=== PATIENT | female | born 1950 | race Caucasian/White ===

== ENCOUNTER 2017-12-21 08:25 | Inpatient (IN) | payer MEDICARE ==
[~2017-12-21] VITALS: Ht 154.9 cm; Wt 55.0 kg
[2017-12-21] MEDS ORDERED: LACTATED RINGERS 1,000 ML IV SCH (09:03)
[2017-12-21] MEDS ORDERED: OXYC-305 PO (09:13)
[2017-12-21] MEDS ORDERED: CAPE150T PO (09:13)
[2017-12-21] MEDS ORDERED: OXYB5TAB PO (09:13)
[2017-12-21] MEDS ORDERED: [UNRECOGNIZED DRUG - CODE] (09:13)
[2017-12-21] MEDS ORDERED: ALPR1TAB2 PO (09:13)
[2017-12-21] MEDS ORDERED: VENL75CA PO (09:13)
[2017-12-21 09:25] VITALS: BP 132/99
[2017-12-21] MEDS ORDERED: PLEASE ENTER HEIGHT AND WEIGHT MC SCH (09:30)
[2017-12-21] MEDS ORDERED: FENTANYL PF 250 MCG/5ML ONE (11:22)
[2017-12-21] MEDS ORDERED: BACITRACIN 50,000 UNIT ONE (11:57)
[2017-12-21] MEDS ORDERED: EPINEPHRINE 1 MG/ML, 1ML ONE (11:57)
[2017-12-21] MEDS ORDERED: THROMBIN 5,000 UNIT VIAL TP ONE (11:57)
[2017-12-21] MEDS ORDERED: BUPIVACAINE/PF 0.5% ONE (11:57)
[2017-12-21] MEDS ORDERED: PROPOFOL 10 MG/ML, 20ML ONE (13:08)
[2017-12-21] MEDS ORDERED: DEXAMETHASONE 4 MG/ML, 1ML ONE (13:08)
[2017-12-21] MEDS ORDERED: SUCCINYLCHOLINE 20 MG/ML, 10ML ONE (13:08)
[2017-12-21] MEDS ORDERED: CEFAZOLIN 1,000 MG ONE (13:08)
[2017-12-21] MEDS ORDERED: ONDANSETRON 2MG/ML, 2ML ONE (13:08)
[2017-12-21] MEDS ORDERED: LABETALOL 5MG/ML, 20ML ONE (13:08)
[2017-12-21] MEDS ORDERED: BUPIVACAINE/PF-EPI 0.5% 1:200K IM ONE ×2 (13:44→14:15)
[2017-12-21] MEDS ORDERED: FENTANYL PF 100 MCG/2ML ONE ×2 (14:52→15:45)
[2017-12-21] MEDS ORDERED: OXYcodone 5 MG/5 ML ORAL.SOL UDC ONE (14:52)
[2017-12-21] MEDS: FENTANYL PF 100 MCG/2ML IV PRN ×4 (14:52→16:08)
[2017-12-21] MEDS ORDERED: ACETAMINOPHEN 325 MG TABLET PO PRN (15:00)
[2017-12-21] MEDS ORDERED: PROMETHAZINE 25 MG/ML, 1ML IV PRN (15:00)
[2017-12-21] MEDS ORDERED: LABETALOL 5MG/ML, 20ML IV PRN ×2 (15:00→17:00)
[2017-12-21] MEDS ORDERED: OXYcodone 5 MG/5 ML ORAL.SOL UDC PO PRN (15:00)
[2017-12-21] MEDS ORDERED: hydrALAzine 20 MG/ML, 1ML IV PRN (15:00)
[2017-12-21] MEDS ORDERED: ALBUTEROL SULFATE 2.5 MG/3 ML NPPB PRN (15:00)
[2017-12-21] MEDS ORDERED: HYDROmorphone 2 MG/ML, 1ML ONE (15:17)
[2017-12-21] MEDS: HYDROmorphone 1 MG/ML, 1ML IV PRN ×4 (15:24→15:50)
[2017-12-21] MEDS ORDERED: DIPHENHYDRAMINE 50 MG/ML, 1ML IVPush PRN (17:00)
[2017-12-21] MEDS ORDERED: ONDANSETRON 2MG/ML, 2ML IV PRN (17:00)
[2017-12-21] MEDS ORDERED: BISACODYL 10 MG SUPP PR PRN (17:00)
[2017-12-21] MEDS ORDERED: MAGNESIUM HYDROXIDE 8%, 30ML UDC PO PRN (17:00)
[2017-12-21] MEDS ORDERED: DIPHENHYDRAMINE 25 MG CAPSULE PO PRN (17:00)
[2017-12-21] MEDS ORDERED: morphine SULFATE 10 MG/ML, 1ML IV PRN (17:00)
[2017-12-21] MEDS: D5%-0.9% NACL+KCL 20MEQ 1,000 ML IV SCH (18:41)
[2017-12-21 19:03] VITALS: BP 114/74
[2017-12-21] MEDS: METHOCARBAMOL 750 MG TABLET PO PRN (19:44)
[2017-12-21] MEDS: OXYBUTYNIN CHLORIDE 5 MG TABLET PO SCH (19:45)
[2017-12-21] MEDS: OXYcodone/APAP 5/325MG TABLET PO PRN (19:45)
[2017-12-21] MEDS: CEFAZOLIN PMX 1GM/50ML 50 ML IVPB SCH (21:30)
[2017-12-22] MEDS: OXYcodone/APAP 5/325MG TABLET PO PRN ×5 (00:01→20:51)
[2017-12-22 00:34] VITALS: BP 101/64
[2017-12-22] MEDS: METHOCARBAMOL 750 MG TABLET PO PRN ×3 (04:02→23:59)
[2017-12-22 04:19] VITALS: BP 123/65
[2017-12-22 05:07] LABS: BASOPHILS # (AUTO) 0.01 x10^3/uL (0-0.1); BASOPHILS % (AUTO) 0 % (0-1); EOSINOPHILS % (AUTO) 0 % (1-7); LYMPHOCYTES # (AUTO) 0.36 x10^3/uL (1-3.4); LYMPHOCYTES % (AUTO) 5 % (22-44); MD NO; MEAN CORPUSCULAR VOLUME 96.9 fL (80-100); MEAN PLATELET VOLUME 6.7 fL (7.4-10.4); MONOCYTES # (AUTO) 0.53 x10^3/uL (0.2-0.8); MONOCYTES % (AUTO) 8 % (2-9); NEUTROPHILS # (AUTO) 6.02 x10^3/uL (1.8-6.8); NEUTROPHILS % (AUTO) 87 % (42-75); PLATELET COUNT 258 x10^3/uL (130-400); RED BLOOD COUNT 3.67 x10^6/uL (3.82-5.3); RED CELL DISTRIBUTION WIDTH 14.1 % (9.6-15.2)
[2017-12-22 05:15] LABS: ALBUMIN 2.6 g/dL (3.4-5.0); ANION GAP 5 mmol/L (5-15); CALCIUM 7.6 mg/dL (8.5-10.1); CHLORIDE 109 mmol/L (98-107); CREATININE 0.88 mg/dL (0.55-1.02)
[2017-12-22] MEDS: CEFAZOLIN PMX 1GM/50ML 50 ML IVPB SCH (05:17)
[2017-12-22] MEDS: D5%-0.9% NACL+KCL 20MEQ 1,000 ML IV SCH ×2 (05:30→18:00)
[2017-12-22 07:08] VITALS: BP 98/58
[2017-12-22 07:25] VITALS: BP 114/58
[2017-12-22] MEDS: FAMOTIDINE 20 MG TABLET PO SCH (08:31)
[2017-12-22] MEDS: OXYBUTYNIN CHLORIDE 5 MG TABLET PO SCH ×2 (08:32→20:51)
[2017-12-22] MEDS: SENNA/DOCUSATE TABLET PO SCH (08:33)
[2017-12-22] MEDS: DOXYCYCLINE 100MG TABLET PO SCH ×2 (08:33→20:51)
[2017-12-22] MEDS: OxyconTIN ER 10 MG TAB.ER PO SCH ×2 (08:33→20:51)
[2017-12-22] MEDS: VENLAFAXINE 75 MG CAP ER PO SCH (08:33)
[2017-12-22 13:54] VITALS: BP 133/76
[2017-12-22 19:29] VITALS: BP_SYST 111; BP_SYST 141; BP_DIAS 47; BP_DIAS 81
[2017-12-23 01:00] VITALS: BP 140/87
[2017-12-23] MEDS: OXYcodone/APAP 5/325MG TABLET PO PRN ×2 (03:15→07:28)
[2017-12-23] MEDS: D5%-0.9% NACL+KCL 20MEQ 1,000 ML IV SCH (06:27)
[2017-12-23 07:06] VITALS: BP 130/87
[2017-12-23] MEDS ORDERED: METH750T87 PO (09:19)
[2017-12-23] MEDS ORDERED: DOXY100T PO (09:20)
[2017-12-23] MEDS ORDERED: OXYC-302 PO (09:26)
[2017-12-23] MEDS ORDERED: OXYC10TA47 PO (09:27)
[2017-12-23] MEDS: SENNA/DOCUSATE TABLET PO SCH (09:32)
[2017-12-23] MEDS: OxyconTIN ER 10 MG TAB.ER PO SCH (09:33)
[2017-12-23] MEDS: DOXYCYCLINE 100MG TABLET PO SCH (09:33)
[2017-12-23] MEDS: FAMOTIDINE 20 MG TABLET PO SCH (09:33)
[2017-12-23] MEDS: OXYBUTYNIN CHLORIDE 5 MG TABLET PO SCH (09:33)
[2017-12-23] MEDS: VENLAFAXINE 75 MG CAP ER PO SCH (09:43)
[2017-12-23 10:07] VITALS: BP 103/55
== END 2017-12-23 12:00 | disposition home or self-care (01) | DRG 515 ==
LOC: 4NOR 08:25 → EDSTATUS 10:00 → DCLOUNGE 12-23 11:38
PROVIDERS: ADMIT Neurological Surgery; ATTEND Neurological Surgery
PROC: 0RP604Z Removal of Internal Fixation Device from Thoracic Vertebral Joint, Open Approach (ICD-10-PCS; principal; 2017-12-21 12:00)
DX: T84.84XA Pain due to internal orthopedic prosthetic devices, implants and grafts, initial encounter (principal); E43 Unspecified severe protein-calorie malnutrition; Y83.1 Surgical operation with implant of artificial internal device as the cause of abnormal reaction of the patient, or of later complication, without mention of misadventure at the time of the procedure; Z92.3 Personal history of irradiation; Z98.1 Arthrodesis status; Y92.89 Other specified places as the place of occurrence of the external cause; C50.919 Malignant neoplasm of unspecified site of unspecified female breast; M19.90 Unspecified osteoarthritis, unspecified site; F32.9 Major depressive disorder, single episode, unspecified; F41.9 Anxiety disorder, unspecified
CPT/HCPCS: 36415; 76001; 80048; 82040; 85025; G0378; J0171; J0690; J1100; J1170; J2405; J2704; J3010; J3490; J0330; J2270; J3480